=== PATIENT | female | born 1960 | race Caucasian/White ===

== ENCOUNTER 2018-09-15 11:04 | Observation (INO) | payer MEDICARE ==
[~2018-09-15] VITALS: Ht 160 cm; Wt 75.6 kg
[~2018-09-15 11:04] MED LIST: Amitriptyline100 MG PO; METO25ER PO; Omeprazole20 M1 PO; PREG150 PO
[2018-09-15 11:53] LABS: BASOPHILS ABSOLUTE AUTO 0.04 K/mm3 (0.00-0.23); BASOPHILS PERCENT AUTO 1 % (0-2); EOSINOPHILS ABSOLUTE AUTO 0.21 K/mm3 (0.00-0.68); EOSINOPHILS PERCENT AUTO 4 % (0-6); Hemoglobin 12.8 g/dL (11.5-16.0); IMMATURE GRAN ABSOLUTE AUTO 0.04 K/mm3 (0.00-0.10); IMMATURE GRAN PERCENT AUTO 1 % (0-1); LYMPHOCYTES ABSOLUTE AUTO 1.84 K/mm3 (0.84-5.20); LYMPHOCYTES PERCENT AUTO 35 % (21-46); MONOCYTES ABSOLUTE AUTO 0.28 K/mm3 (0.16-1.47); MONOCYTES PERCENT AUTO 5 % (4-13); Mean Corpuscular Volume 91 fL (80-100); Mean Platelet Volume 10.5 fL (9.1-12.4); NEUTROPHILS ABSOLUTE AUTO 2.85 K/mm3 (1.96-9.15); NEUTROPHILS PERCENT AUTO 54 % (41-73); Platelet Count 237 K/mm3 (150-400); RDW Coefficient Variation 13.4 % (11.7-14.2); RDW Standard Deviation 44.7 fL (35.1-46.3); Red Blood Cell Count 4.42 M/mm3 (3.80-5.20); White Blood Cell Count 5.26 K/mm3 (4.00-11.30)
[2018-09-15] MEDS ORDERED: METF500C PO (12:14)
[2018-09-15] MEDS ORDERED: FLUO10 PO (12:14)
[2018-09-15 12:20] LABS: Alanine Aminotransfer (ALT/SGP 30 U/L (12-78); Albumin, Blood 3.8 g/dL (3.4-5.0); Albumin/Globulin Ratio 1.1 (0.8-1.8); Alk Phos 96 U/L (50-136); Anion Gap 10 mmol/L (6-16); Aspartate Aminotrans (AST/SGOT 14 U/L (12-37); Bilirubin, Total 0.3 mg/dL (0.1-1.0); Blood Urea Nitrogen 13 mg/dL (8-24); Bun/Creatinine Ratio 20.6 (12.0-20.0); CO2, Blood 26 mmol/L (21-32); Chloride, Blood 103 mmol/L (98-108); Creatinine, Blood 0.63 mg/dL (0.40-1.00); Globulin, Blood 3.4 g/dL (2.2-4.0); Glomerular Filtration Rate >60 (60-); Glucose, Blood 137 mg/dL (70-99); Potassium, Blood 4.2 mmol/L (3.5-5.5); Sodium, Blood 139 mmol/L (136-145); Total Protein, Blood 7.2 g/dL (6.4-8.2)
[2018-09-15 12:26] LABS: International Normalized Ratio 0.98; Prothrombin Time Results 10.4 Sec (9.7-11.5)
[2018-09-15 12:39] LABS: Ethanol (Alcohol), Blood, Med <3 mg/dL
[2018-09-15 13:57] LABS: Source, Urine Clean Catch
[2018-09-15 14:01] LABS: Appearance, Urine Clear (Clear); Bilirubin, Urine Neg (Neg); Blood, Urine Neg (Neg); Color, Urine Yellow (P-Yellow); Glucose Qualitative, Urine Neg (Neg); Ketones, Urine Neg (Neg); Leukocyte Esterase, Urine Neg (Neg); Nitrite, Urine Neg (Neg); Protein, Urine Neg (Neg); Specific Gravity, Urine 1.015 (1.003-1.022); Urobilinogen, Urine NORM (Normal)
[2018-09-15] MEDS ORDERED: Daily Multiple1 EACH PO (15:15)
--- NOTE | 2018-09-15 18:28 | NUR ---
SHIFT SUMMARY PT AXO, PLEASANT AND COOPERATIVE WITH CARE THOUGH SHE STATES THAT SHE HAS "MEMORY PROBLEMS." SLIGHT LEFT SIDED WEAKNESS. PT ARRIVED TO ROOM VIA WHEELCHAIR AT 1442. ADMISSION COMPLETE, PT STATES THAT SHE WANTS TO BE A "DNR" STATUS, WITNESSED WITH CHARGE NURSE RAVINDER CLEMENT AND DR MENESES GAVE VERBAL ORDERS FOR NURSE TO INPUT THAT ORDER. PT JUST ARRIVED BACK TO ROOM POST MRI. PT AWARE URINE SAMPLE IS STILL NEEDED. BED IN LOW POSITION, CALL LIGHT WITHIN REACH. PT AGREES TO CALL PRIOR TO AMBULATION. PT ORIENTED TO ROOM AND PLASTIC FINISHER. PT'S OWN C-PAP IN ROOM, RT AWARE. PT ON CONTINUOUS PULSE OX. NORMAL SINUS RHYTHM ON TELE.
[2018-09-15 20:12] LABS: U Amphetamine Screen Not Detected; U Barbituate Screen Not Detected; U Benzodiazapine Screen Not Detected; U Buprenorphine Screen Not Detected; U Cannabinoids Screen Not Detected; U Cocaine Screen Not Detected; U Methadone Screen Not Detected; U Methamphetamine Screen Not Detected; U Opiates Screen Not Detected; U Oxycodone Screen Not Detected; U Phencyclidine Screen Not Detected; U Propoxyphene Screen Not Detected
[2018-09-15 21:42] LABS: Source, Urine Clean Catch
[2018-09-15 21:45] LABS: Bilirubin, Urine Neg (Neg); Blood, Urine Neg (Neg); Glucose Qualitative, Urine Neg (Neg); Ketones, Urine Neg (Neg); Leukocyte Esterase, Urine Neg (Neg); Nitrite, Urine Neg (Neg); Protein, Urine Neg (Neg); Specific Gravity, Urine 1.015 (1.003-1.022); Urobilinogen, Urine NORM (Normal); pH, Urine 6.5 (5.0-8.0)
[2018-09-15 21:48] LABS: Appearance, Urine Clear (Clear); Color, Urine Yellow (P-Yellow)
[2018-09-16 05:20] LABS: CHOL/HDL RATIO 9.9; Cholesterol 327 mg/dL (50-200); HDL Cholesterol 33 mg/dL (>39)
[2018-09-16 05:29] LABS: LDL/HDL RATIO Unable to Calculate; Low Density Lipoprotein Chol Unable to Calculate mg/dL (0-110); Triglycerides 1096 mg/dL (30-160); Very Low Density Lipoprot Chol 219 mg/dL (6-32)
--- NOTE | 2018-09-16 06:06 | NUR ---
SHIFT SUMMARY: PT ADMITTED FOR STROKE-LIKE SYMPTOMS THAT BEGAN @ 1000 ON 09/15. PT REPORTS HAVING L SIDE WEAKNESS, L FACIAL DROOP, SLURRED SPEECH AT THAT TIME. SYMPTOMS HAVE SINCE RESOLVED. PT HAD MILD L SIDE RESIDUAL WEAKNESS UNTIL THIS AM. PT IS NOW WNL AND EQUAL STRENGTH. Q2H NEURO CHECKS PERFORMED PER ORDERS. SENSATION INTACT, SWALLOW INTACT, STRENGTH CNC PROGRAMMER EQUAL. PT IS A SBA SHE BECOMES DIZZY UPON RISING. LS CLEAR, RESP E/U ON ROOM AIR, VSS. PT HAD HEADACHE AT START OF SHIFT THAT RESOLVED c PRN TYLENOL. CBG @ 137 THIS EVENING; NO COV INDICATED. WILL CONT TO MONITOR AND PROVIDE CARE UNTIL PRESUMED BY ONCOMING RN.
[2018-09-16] MEDS ORDERED: LISI5 PO (09:41)
[2018-09-16] MEDS ORDERED: ASPI81CH PO (09:41)
[2018-09-16] MEDS ORDERED: PRAV20 PO (09:41)
--- NOTE | 2018-09-16 12:50 | NUR ---
DISCHARGE PT DISCHARGED TO HOME. THIS RN EXPLAINED DISCHARGE INSTRUCTIONS AND DISCHARGE MEDICATIONS TO PT AND SHE REPORTS SHE UNDERSTANDS. PT HAD ECHO DONE RIGHT BEFORE DISCHARGE. [facility] BY GONZALO. BELONGINGS WITH PT.
== END 2018-09-16 12:38 | disposition home or self-care (01) ==
LOC: ER 11:04 → MEDS 11:05 → ER 13:57 → MEDS 14:37 → ENPENDDIS 09-16 09:00 → MEDS 09-16 12:38
PROVIDERS: Emergency Medicine; ADMIT Internal Medicine
DX: R47.81 Slurred speech (principal); R29.810 Facial weakness; M79.7 Fibromyalgia; K21.9 Gastro-esophageal reflux disease without esophagitis; I10 Essential (primary) hypertension; E11.9 Type 2 diabetes mellitus without complications; F41.8 Other specified anxiety disorders; Z87.891 Personal history of nicotine dependence; Z79.899 Other long term (current) drug therapy; Z79.84 Long term (current) use of oral hypoglycemic drugs; Z51.81 Encounter for therapeutic drug level monitoring
CPT/HCPCS: 36415; 70450; 70496; 70498; 70551; 71045; 80053; 80061; 81003; 82947; 83036; 84443; 85025; 85610; 85730; 90686; 93005; 93010; 93306; 94762; 96372; 97161; 97165; 97530; 99285-25; G0008; G0378; G0480; J1650; Q9967

== ENCOUNTER → 2018-09-30 | Outpatient (CLI) | payer MEDICARE ==
[~2018-09-30] MED LIST changes: +ASPI81CH PO; +Daily Multiple1 EACH PO; +FLUO10 PO; +LISI5 PO; +METF500C PO; +PRAV20 PO
[2018-09-30 10:04] LABS: BASOPHILS ABSOLUTE AUTO 0.05 K/mm3 (0.00-0.23); BASOPHILS PERCENT AUTO 1 % (0-2); EOSINOPHILS ABSOLUTE AUTO 0.24 K/mm3 (0.00-0.68); EOSINOPHILS PERCENT AUTO 3 % (0-6); Hematocrit 36.1 % (33.0-51.0); Hemoglobin 12.1 g/dL (11.5-16.0); IMMATURE GRAN ABSOLUTE AUTO 0.07 K/mm3 (0.00-0.10); IMMATURE GRAN PERCENT AUTO 1 % (0-1); LYMPHOCYTES ABSOLUTE AUTO 1.57 K/mm3 (0.84-5.20); LYMPHOCYTES PERCENT AUTO 18 % (21-46); MONOCYTES ABSOLUTE AUTO 0.52 K/mm3 (0.16-1.47); MONOCYTES PERCENT AUTO 6 % (4-13); Mean Corpuscular HGB Conc 33.5 g/dL (31.5-36.5); Mean Corpuscular Volume 87 fL (80-100); Mean Platelet Volume 10.4 fL (9.1-12.4); NEUTROPHILS ABSOLUTE AUTO 6.27 K/mm3 (1.96-9.15); NEUTROPHILS PERCENT AUTO 72 % (41-73); Platelet Count 295 K/mm3 (150-400); RDW Coefficient Variation 13.8 % (11.7-14.2); RDW Standard Deviation 43.8 fL (35.1-46.3); Red Blood Cell Count 4.17 M/mm3 (3.80-5.20); White Blood Cell Count 8.72 K/mm3 (4.00-11.30)
[2018-09-30 10:13] LABS: Anion Gap 12 mmol/L (6-16); Blood Urea Nitrogen 14 mg/dL (8-24); Bun/Creatinine Ratio 17.9 (12.0-20.0); CO2, Blood 26 mmol/L (21-32); Calcium, Blood 9.3 mg/dL (8.5-10.1); Chloride, Blood 99 mmol/L (98-108); Creatinine, Blood 0.78 mg/dL (0.40-1.00); Glomerular Filtration Rate >60 (60-); Glucose, Blood 165 mg/dL (70-99); Potassium, Blood 4.2 mmol/L (3.5-5.5); Sodium, Blood 137 mmol/L (136-145)
== END ==
LOC: LAB SHORT 10:00 → LAB EV 10:00
PROVIDERS: Emergency Medicine
DX: E86.0 Dehydration (principal)
CPT/HCPCS: 80048; 85025

== ENCOUNTER → 2019-02-16 | Outpatient (CLI) | payer MEDICARE ==
[2019-02-18 22:06] LABS: CHLAMYDIA TRACHOMATIS, NAA Negative (Negative); NEISSERIA GONORRHOEAE, NAA Negative (Negative)
== END ==
LOC: LAB EV 10:22 → LAB SHORT 10:22
PROVIDERS: Physician Assistant
DX: R10.2 Pelvic and perineal pain (principal)
CPT/HCPCS: 87491; 87591

== ENCOUNTER 2020-04-08 10:42 | Day surgery (SDC) | payer MEDICARE ==
[~2020-04-08] VITALS: Ht 160 cm; Wt 76.4 kg
[~2020-04-08 10:42] MED LIST changes: +AMIT50 PO; +Aspir 8181 MG PO; +ERGO400 PO; +FERSU300 PO; +MULTIVITAMINS1 EAC3 PO; +OMEP20ER PO; +PROAIR DIGIHAL90 MCG; +Prozac40 MG PO; +SUMA5NI
== END 2020-04-08 12:54 | disposition home or self-care (01) ==
LOC: ORSCSDS 10:42
PROVIDERS: Student in an Organized Health Care Education/Training Program
PROC: 0DB48ZX Excision of Esophagogastric Junction, Via Natural or Artificial Opening Endoscopic, Diagnostic (ICD-10-PCS; principal; 2020-04-08 12:00)
PROC: 0DJD8ZZ Inspection of Lower Intestinal Tract, Via Natural or Artificial Opening Endoscopic (ICD-10-PCS; principal; 2020-04-08 12:00)
PROC: 0DB58ZX Excision of Esophagus, Via Natural or Artificial Opening Endoscopic, Diagnostic (ICD-10-PCS; principal; 2020-04-08 12:00)
DX: R13.10 Dysphagia, unspecified (principal); Z12.11 Encounter for screening for malignant neoplasm of colon; K92.1 Melena; K21.9 Gastro-esophageal reflux disease without esophagitis; I10 Essential (primary) hypertension; R56.9 Unspecified convulsions; M79.7 Fibromyalgia; F41.9 Anxiety disorder, unspecified; Z86.73 Personal history of transient ischemic attack (TIA), and cerebral infarction without residual deficits; G47.33 Obstructive sleep apnea (adult) (pediatric); E11.9 Type 2 diabetes mellitus without complications; Z79.82 Long term (current) use of aspirin; Z79.84 Long term (current) use of oral hypoglycemic drugs; Z79.899 Other long term (current) drug therapy
CPT/HCPCS: 82947; 88305; J2250; J2704; J7120

== ENCOUNTER 2020-07-29 22:29 | Emergency (ER) | payer MEDICARE ==
[~2020-07-29] VITALS: Ht 157.5 cm; Wt 77.1 kg
== END 2020-07-30 00:39 | disposition home or self-care (01) ==
LOC: ER 22:29
DX: U07.1 COVID-19 (principal); R06.02 Shortness of breath; R05 Cough; R50.9 Fever, unspecified; E11.9 Type 2 diabetes mellitus without complications; I10 Essential (primary) hypertension; Z87.891 Personal history of nicotine dependence; Z79.84 Long term (current) use of oral hypoglycemic drugs; Z79.82 Long term (current) use of aspirin
CPT/HCPCS: 99283

== ENCOUNTER 2021-02-27 14:58 | Observation (INO) | payer MEDICARE ==
[~2021-02-27] VITALS: Ht 157.5 cm; Wt 77.1 kg
[2021-02-27 16:05] LABS: BASOPHILS ABSOLUTE AUTO 0.05 K/mm3 (0.00-0.23); BASOPHILS PERCENT AUTO 1 % (0-2); EOSINOPHILS ABSOLUTE AUTO 0.21 K/mm3 (0.00-0.68); EOSINOPHILS PERCENT AUTO 3 % (0-6); Hematocrit 41.9 % (33.0-51.0); IMMATURE GRAN ABSOLUTE AUTO 0.06 K/mm3 (0.00-0.10); IMMATURE GRAN PERCENT AUTO 1 % (0-1); LYMPHOCYTES PERCENT AUTO 35 % (21-46); MONOCYTES ABSOLUTE AUTO 0.38 K/mm3 (0.16-1.47); MONOCYTES PERCENT AUTO 5 % (4-13); Mean Corpuscular HGB 28.7 pg (26.0-34.0); Mean Corpuscular HGB Conc 33.4 g/dL (31.5-36.5); Mean Corpuscular Volume 86 fL (80-100); Mean Platelet Volume 10.6 fL (9.1-12.4); NEUTROPHILS ABSOLUTE AUTO 4.18 K/mm3 (1.96-9.15); NEUTROPHILS PERCENT AUTO 56 % (41-73); Platelet Count 322 K/mm3 (150-400); RDW Coefficient Variation 13.7 % (11.7-14.2); RDW Standard Deviation 43.2 fL (35.1-46.3); Red Blood Cell Count 4.87 M/mm3 (3.80-5.20); White Blood Cell Count 7.48 K/mm3 (4.00-11.30)
[2021-02-27 16:23] LABS: Alanine Aminotransfer (ALT/SGP 58 U/L (12-78); Albumin, Blood 4.5 g/dL (3.4-5.0); Albumin/Globulin Ratio 1.1 (0.8-1.8); Alk Phos 131 U/L (50-136); Anion Gap 9 mmol/L (6-16); Aspartate Aminotrans (AST/SGOT 33 U/L (12-37); Bilirubin, Total 0.3 mg/dL (0.1-1.0); Blood Urea Nitrogen 21 mg/dL (8-24); Bun/Creatinine Ratio 26.9 (12.0-20.0); CO2, Blood 25 mmol/L (21-32); Calcium, Blood 10.3 mg/dL (8.5-10.1); Chloride, Blood 104 mmol/L (98-108); Creatinine, Blood 0.78 mg/dL (0.40-1.00); Ethanol (Alcohol), Blood, Med <3 mg/dL; Glomerular Filtration Rate >60 (60-); Glucose, Blood 173 mg/dL (70-99); Potassium, Blood 3.9 mmol/L (3.5-5.5); Sodium, Blood 138 mmol/L (136-145); Thyroxine (T4) 11.4 ug/dL (4.8-13.9); Total Protein, Blood 8.5 g/dL (6.4-8.2)
[2021-02-27 16:32] LABS: Acetaminophen, Random <2.0 ug/mL (10.0-30.0)
[2021-02-27] MEDS ORDERED: METF500 PO (16:37)
[2021-02-27] MEDS ORDERED: ALPR1 PO (16:37)
[2021-02-27 18:05] LABS: Source, Urine Clean Catch
[2021-02-27 18:28] LABS: Appearance, Urine Clear (Clear); Bilirubin, Urine Neg (Neg); Blood, Urine Neg (Neg); Color, Urine Yellow (P-Yellow); Glucose Qualitative, Urine Neg (Neg); Ketones, Urine Neg (Neg); Leukocyte Esterase, Urine Neg (Neg); Nitrite, Urine Neg (Neg); Protein, Urine 2+ (Neg); Urobilinogen, Urine NORM (Normal)
[2021-02-27 18:40] LABS: U Amphetamine Screen Not Detected; U Barbituate Screen Not Detected; U Benzodiazapine Screen DETECTED; U Buprenorphine Screen Not Detected; U Cannabinoids Screen Not Detected; U Cocaine Screen Not Detected; U Methadone Screen Not Detected; U Methamphetamine Screen Not Detected; U Opiates Screen Not Detected; U Oxycodone Screen Not Detected; U Phencyclidine Screen Not Detected; U Propoxyphene Screen Not Detected
[2021-02-27 18:43] LABS: Bacteria Few /hpf; Red Blood Cells, Urine Not Seen /hpf (0-2); Squamous Epithelial Cells Rare /hpf (Few); White Blood Cells, Urine Rare /hpf (0-5)
[2021-02-28 00:17] LABS: SARS-Cov-2 (COVID-19) PCR, MMC NEGATIVE (NEGATIVE)
[2021-03-02 10:33] LABS: SARS-Cov-2 (COVID-19) PCR, MMC NEGATIVE (NEGATIVE)
[2021-03-03] MEDS ORDERED: FENO160 PO (10:34)
[2021-03-03] MEDS ORDERED: METF500 PO (10:34)
== END 2021-03-03 14:45 | disposition home or self-care (01) ==
LOC: ER 14:58 → EOR 14:59 → UNDODEPER 03-01 00:40 → ERHOLD 03-01 08:09 → EOR 03-01 08:10
PROVIDERS: Emergency Medicine; Physician Assistant; ADMIT Student in an Organized Health Care Education/Training Program
DX: F33.2 Major depressive disorder, recurrent severe without psychotic features (principal); F45.42 Pain disorder with related psychological factors; F41.1 Generalized anxiety disorder; E11.9 Type 2 diabetes mellitus without complications; I10 Essential (primary) hypertension; M79.7 Fibromyalgia; K21.9 Gastro-esophageal reflux disease without esophagitis; Z87.891 Personal history of nicotine dependence; Z79.84 Long term (current) use of oral hypoglycemic drugs; Z20.822 Contact with and (suspected) exposure to COVID-19; Z86.16 Personal history of COVID-19; Z91.5 Personal history of self-harm
CPT/HCPCS: 80053; 81001; 82947; 84436; 85025; 99285; A9270; G0378; G0480; Q3014; U0004

== ENCOUNTER → 2021-06-03 | Outpatient (CLI) | payer MEDICARE ==
[~2021-06-03] MED LIST changes: +ALPR1 PO; +FENO160 PO; +METF500 PO
== END ==
LOC: LAB SHORT 11:30 → LAB 11:30
DX: N39.0 Urinary tract infection, site not specified (principal)
CPT/HCPCS: 87077; 87086; 87186

== ENCOUNTER → 2022-01-31 | Outpatient (CLI) | payer MEDICARE | END | disposition home or self-care (01) | LOC: LAB SHORT 18:25 → LAB 18:25 | DX: N39.0 Urinary tract infection, site not specified (principal) | CPT/HCPCS: 87077; 87086; 87186 ==

== ENCOUNTER → 2022-04-04 | Outpatient (CLI) | payer MEDICARE | LOC: LAB SHORT 09:21 → LAB 09:21 | DX: R10.2 Pelvic and perineal pain (principal) | CPT/HCPCS: 87086 ==

== ENCOUNTER → 2022-04-27 | Outpatient (CLI) | payer MEDICARE ==
[2022-04-27 18:10] LABS: Source, Urine Clean Catch
[2022-04-27 19:39] LABS: Appearance, Urine Clear (Clear); Bilirubin, Urine Neg (Neg); Blood, Urine Neg (Neg); Color, Urine Yellow (P-Yellow); Glucose Qualitative, Urine Neg (Neg); Ketones, Urine Neg (Neg); Leukocyte Esterase, Urine Neg (Neg); Nitrite, Urine Neg (Neg); Protein, Urine Neg (Neg); Urobilinogen, Urine NORM (Normal)
== END | disposition home or self-care (01) ==
LOC: LAB 16:34 → LAB SHORT 16:34
PROVIDERS: Obstetrics & Gynecology
DX: R10.2 Pelvic and perineal pain (principal)
CPT/HCPCS: 81003

== ENCOUNTER → 2024-05-26 | Outpatient (CLI) | payer MEDICARE | LOC: LAB 12:17 → LAB SHORT 12:17 | DX: N39.0 Urinary tract infection, site not specified (principal) | CPT/HCPCS: 87077; 87086; 87186 ==

== ENCOUNTER 2024-10-22 18:44 | Emergency (ER) | payer MEDICARE ==
[~2024-10-22] VITALS: Ht 157.5 cm; Wt 72.6 kg
[2024-10-22 19:03] VITALS: BP 151/73
== END 2024-10-22 20:25 | disposition home or self-care (01) ==
LOC: ER 18:44
DX: M18.9 Osteoarthritis of first carpometacarpal joint, unspecified (principal); E11.9 Type 2 diabetes mellitus without complications; I10 Essential (primary) hypertension; F31.9 Bipolar disorder, unspecified; K21.9 Gastro-esophageal reflux disease without esophagitis; Z87.891 Personal history of nicotine dependence; Z91.014 Allergy to mammalian meats; Z91.018 Allergy to other foods; Z79.84 Long term (current) use of oral hypoglycemic drugs; Z79.899 Other long term (current) drug therapy
CPT/HCPCS: 73140; 99283-25